=== PATIENT | male | born 1960 ===

== ENCOUNTER → 2019-12-24 | Outpatient (CLI) | payer BC ==
[2019-12-24 14:22] LABS: Source, Urine Clean Catch
[2019-12-24 18:30] LABS: Bilirubin, Urine Neg (Neg); Blood, Urine Neg (Neg); Glucose Qualitative, Urine 4+ (Neg); Ketones, Urine Neg (Neg); Leukocyte Esterase, Urine Neg (Neg); Nitrite, Urine Neg (Neg); Protein, Urine Neg (Neg); Specific Gravity, Urine 1.015 (1.003-1.022); Urobilinogen, Urine NORM (Normal); pH, Urine 6.5 (5.0-8.0)
[2019-12-24 18:57] LABS: Appearance, Urine Clear (Clear); Color, Urine Yellow (P-Yellow)
== END | disposition home or self-care (01) ==
LOC: LAB 14:20 → LAB SHORT 14:20
PROVIDERS: Nurse Practitioner Family
DX: Z12.5 Encounter for screening for malignant neoplasm of prostate (principal); Z11.59 Encounter for screening for other viral diseases; I10 Essential (primary) hypertension; R73.01 Impaired fasting glucose; R53.83 Other fatigue
CPT/HCPCS: 81003

== ENCOUNTER 2022-03-07 04:35 | Inpatient (IN) | payer BC ==
[~2022-03-07] VITALS: Ht 170.2 cm; Wt 87.0 kg
[2022-03-07 05:22] LABS: BASOPHILS ABSOLUTE AUTO 0.09 K/mm3 (0.00-0.23); BASOPHILS PERCENT AUTO 1 % (0-2); EOSINOPHILS ABSOLUTE AUTO 0.23 K/mm3 (0.00-0.68); EOSINOPHILS PERCENT AUTO 3 % (0-6); Hemoglobin 15.3 g/dL (13.5-17.5); IMMATURE GRAN ABSOLUTE AUTO 0.03 K/mm3 (0.00-0.10); IMMATURE GRAN PERCENT AUTO 0 % (0-1); LYMPHOCYTES ABSOLUTE AUTO 1.64 K/mm3 (0.84-5.20); LYMPHOCYTES PERCENT AUTO 21 % (21-46); MONOCYTES PERCENT AUTO 10 % (4-13); Mean Corpuscular HGB 27.7 pg (26.0-34.0); Mean Corpuscular Volume 82 fL (80-100); Mean Platelet Volume 8.7 fL (9.1-12.4); NEUTROPHILS ABSOLUTE AUTO 4.96 K/mm3 (1.96-9.15); NEUTROPHILS PERCENT AUTO 64 % (41-73); Platelet Count 301 K/mm3 (150-400); RDW Coefficient Variation 12.6 % (11.7-14.2); RDW Standard Deviation 37.2 fL (35.1-46.3); Red Blood Cell Count 5.52 M/mm3 (4.30-5.90); White Blood Cell Count 7.75 K/mm3 (4.00-11.30)
[2022-03-07 06:07] LABS: Alanine Aminotransfer (ALT/SGP 40 U/L (12-78); Albumin, Blood 4.1 g/dL (3.4-5.0); Albumin/Globulin Ratio 1.2 (0.8-1.8); Alk Phos 97 U/L (50-136); Anion Gap 10 mmol/L (6-16); Aspartate Aminotrans (AST/SGOT 12 U/L (12-37); Bilirubin, Total 0.5 mg/dL (0.1-1.0); Blood Urea Nitrogen 11 mg/dL (8-24); Bun/Creatinine Ratio 15.8 (12.0-20.0); CO2, Blood 23 mmol/L (21-32); Calcium, Blood 9.3 mg/dL (8.5-10.1); Chloride, Blood 104 mmol/L (98-108); Ethanol (Alcohol), Blood, Med <3 mg/dL; Globulin, Blood 3.4 g/dL (2.2-4.0); Glomerular Filtration Rate >60 (60-); Glucose, Blood 266 mg/dL (70-99); Potassium, Blood 4.1 mmol/L (3.5-5.5); Sodium, Blood 137 mmol/L (136-145); Total Protein, Blood 7.5 g/dL (6.4-8.2)
[2022-03-07] MEDS ORDERED: ATOR10 PO (09:10)
[2022-03-07] MEDS ORDERED: GLIP10 PO (09:10)
[2022-03-07] MEDS ORDERED: METFORMIN HCL500 M2 PO (09:11)
[2022-03-07] MEDS ORDERED: EUTHYROX88 MC1 PO (09:11)
--- NOTE | 2022-03-07 12:52 | NUR ---
PCU ADMIT PT BROUGHT TO PCU-11 BY BRITTANI FROM ER @ APPROX 1040. PT A&O X4, ABLE TO STAND AND INDEPENDENTLY AMBULATE FROM [facility] TO PCU BED. PT REPORTS HEADACHE THAT "STARTED IN THE FRONT LAST NIGHT & NOW IT'S MOVED TO THE BACK." EMAR SHOWS PT HAVING RECIEVED TYLENOL IN ER THIS AM. PT VSS. SPO2 > 92% ON RA. MONITOR SHOWS SR, HR 80's. PT SPOUSE REPORTS PT SPEECH THIS AM "UNABLE TO UNDERSTAND W/ SO MUCH DROOL COMING OUT OF HIS MOUTH & HIS FACE DROOPING DOWN." PT DENIES KNOWING HIS SPEECH WAS SLURRED. PT SPOUSE REPORTING R-SIDED FACE DROOP. PT & PT SPOUSE REPORTING PREVIOUS R-SIDED WEAKNESS & NUMBNESS W/ REPORT OF LAST EPISODE BEING AROUND 0710 IN THE ER. PT W/ NO R-SIDED DEFICIT AT TIME OF ARRIVAL TO PCU & PT SPEECH CLEAR. PT W/ BRIEF EPISODE OF R ARM "HEAVINESS AROUND 1130, FURTHER STATING "IT'S JUST WEIRD. LIKE I HAVE TO REALLY THINK ABOUT MOVING IT TO MOVE IT, BUT THEN IT'S LIKE IT JUST WANTS TO DO IT'S OWN THING." PT SYMPTOMS RESOLVED & PT THEN SEEN & EVALUATED BY OT IN W/ REPORT OF NO NEED FOR FURTHER FOLLOW UP UNLESS SYMPTOMS RETURN/WORSEN. WILL CONTINUE TO MONITOR & PROVIDE CARE.
[2022-03-07 13:35] LABS: U Amphetamine Screen Not Detected; U Barbituate Screen Not Detected; U Benzodiazapine Screen Not Detected; U Buprenorphine Screen Not Detected; U Cannabinoids Screen Not Detected; U Cocaine Screen Not Detected; U Methadone Screen Not Detected; U Methamphetamine Screen Not Detected; U Opiates Screen Not Detected; U Oxycodone Screen Not Detected; U Phencyclidine Screen Not Detected; U Propoxyphene Screen Not Detected
--- NOTE | 2022-03-07 18:18 | NUR ---
SHIFT SUMMARY PT CONTINUES TO BE A&O X4, VSS. SPO2 > 92% ON RA. MONITOR SHOWING SR, HR 70's-90's. PT W/ NO FURTHER EVENTS OF R-SIDED WEAKNESS & SPEECH REMAINS CLEAR. PT INDEPENDENT IN RM. NS GTT INFUSING PER ORDERS. PT ALSO TOLERATING PO INTAKE WELL. WILL CONTINUE TO MONITOR & PROVIDE CARE UNTIL REPORT OFF TO HUNTING GUIDE RN.
--- NOTE | 2022-03-07 19:39 | NUR ---
ASSUMED CARE OF PATIENT AT APPROXIMATELY 1905 FROM RODOLFO Farias RN. PATIENT ALERT AND ORIENTED X4; INDEPENDENT IN ROOM PER REPORT CLEARED BY PT/OT TODAY. PATIENT REPORTS MILD HEADACHE OFF AND ON ALL DAY; WILL GIVE TYLENOL; REFUSED OTHER INTERVENTIONS. PATIENT DENIES NUMBESS, TINGLING, DIZZINESS, AND NAUSEA. PIV INFUSING NS PER ORDER. NSR ON TELE; OXYGEN SATURATION ABOVE 90% ON ROOM AIR. PATIENT REPORTS READY TO GO HOME TOMORROW.
[2022-03-08 03:42] LABS: BASOPHILS ABSOLUTE AUTO 0.07 K/mm3 (0.00-0.23); BASOPHILS PERCENT AUTO 1 % (0-2); EOSINOPHILS ABSOLUTE AUTO 0.25 K/mm3 (0.00-0.68); EOSINOPHILS PERCENT AUTO 4 % (0-6); Hematocrit 41.6 % (37.0-53.0); IMMATURE GRAN ABSOLUTE AUTO 0.03 K/mm3 (0.00-0.10); IMMATURE GRAN PERCENT AUTO 1 % (0-1); LYMPHOCYTES ABSOLUTE AUTO 1.56 K/mm3 (0.84-5.20); LYMPHOCYTES PERCENT AUTO 26 % (21-46); MONOCYTES PERCENT AUTO 12 % (4-13); Mean Corpuscular HGB 27.5 pg (26.0-34.0); Mean Corpuscular HGB Conc 33.7 g/dL (31.5-36.5); Mean Corpuscular Volume 82 fL (80-100); Mean Platelet Volume 8.8 fL (9.1-12.4); NEUTROPHILS ABSOLUTE AUTO 3.43 K/mm3 (1.96-9.15); NEUTROPHILS PERCENT AUTO 57 % (41-73); Platelet Count 250 K/mm3 (150-400); RDW Coefficient Variation 12.6 % (11.7-14.2); RDW Standard Deviation 37.3 fL (35.1-46.3); White Blood Cell Count 6.04 K/mm3 (4.00-11.30)
[2022-03-08 04:04] LABS: Alanine Aminotransfer (ALT/SGP 32 U/L (12-78); Albumin, Blood 3.5 g/dL (3.4-5.0); Albumin/Globulin Ratio 1.1 (0.8-1.8); Alk Phos 67 U/L (50-136); Anion Gap 6 mmol/L (6-16); Aspartate Aminotrans (AST/SGOT 9 U/L (12-37); Bilirubin, Total 0.6 mg/dL (0.1-1.0); Blood Urea Nitrogen 13 mg/dL (8-24); Bun/Creatinine Ratio 14.7 (12.0-20.0); CHOL/HDL RATIO 4.2; CO2, Blood 27 mmol/L (21-32); Calcium, Blood 8.8 mg/dL (8.5-10.1); Chloride, Blood 106 mmol/L (98-108); Cholesterol 110 mg/dL (50-200); Creatinine, Blood 0.89 mg/dL (0.60-1.20); Globulin, Blood 3.2 g/dL (2.2-4.0); Glomerular Filtration Rate >60 (60-); Glucose, Blood 207 mg/dL (70-99); HDL Cholesterol 26 mg/dL (>39); LDL/HDL RATIO 1.7; Low Density Lipoprotein Chol 45 mg/dL (0-110); Potassium, Blood 4.2 mmol/L (3.5-5.5); Sodium, Blood 139 mmol/L (136-145); Total Protein, Blood 6.7 g/dL (6.4-8.2); Triglycerides 194 mg/dL (30-160); Very Low Density Lipoprot Chol 38 mg/dL (6-32)
--- NOTE | 2022-03-08 06:16 | NUR ---
PATIENT SLEPT ABOUT NINE HOURS. NO ACUTE CHANGES TO REPORT.
--- NOTE | 2022-03-08 06:48 | NUR ---
PATIENT WALKED PCU LOOP.
[2022-03-08] MEDS ORDERED: ATOR80 PO (12:25)
[2022-03-08] MEDS ORDERED: DOCU100 PO (12:25)
[2022-03-08] MEDS ORDERED: CLOP75 PO (12:26)
[2022-03-08] MEDS ORDERED: Lisinopril2.5 MG PO (12:27)
[2022-03-08] MEDS ORDERED: ASPI325 PO (12:45)
--- NOTE | 2022-03-08 13:39 | NUR ---
DISCHARGE HOME PT A&O X4. VSS. SPO2 > 92% ON RA. MONITOR SHOWING NSR. PT W/ NO R-SIDED DEFICIT & SPEECH CLEAR. NO EVENTS. W/ ORDER FOR DISCHARGE HOME. PT DISCHARGED HOME, TAKEN OUT BY A WHEELCHAIR @ APPROX 1300.
== END 2022-03-08 12:51 | disposition home or self-care (01) | DRG 65 ==
LOC: ER 04:35 → PCU 08:16
PROVIDERS: Student in an Organized Health Care Education/Training Program; ADMIT Hospitalist
DX: I63.81 Other cerebral infarction due to occlusion or stenosis of small artery (principal); G81.91 Hemiplegia, unspecified affecting right dominant side; R29.700 NIHSS score 0; R47.01 Aphasia; E11.9 Type 2 diabetes mellitus without complications; E55.9 Vitamin D deficiency, unspecified; E03.9 Hypothyroidism, unspecified; E29.1 Testicular hypofunction; Z88.0 Allergy status to penicillin; Z98.52 Vasectomy status; Z79.84 Long term (current) use of oral hypoglycemic drugs; Z79.899 Other long term (current) drug therapy
CPT/HCPCS: 36415; 70450; 70496; 70498; 70551; 80053; 80061; 82947; 83036; 83735; 84100; 84402; 84403; 85025; 92610; 93005; 93010; 93306; 97161; 97165; 99285-25; A9270; G0480; J1650; J7030; Q9967